=== PATIENT | male | born 1955 | race Caucasian/White ===

== ENCOUNTER 2018-09-21 15:11 | Emergency (ER) | payer OTHER ==
[~2018-09-21] VITALS: Ht 172.7 cm; Wt 92.5 kg
--- NOTE | 2018-09-21 20:58 | EKG ---
[facility] [address] [place] [address] elevation, consider lateral injury or acute infarct ACUTE CO / STEMI Abnormal ECG No previous ECGs available Confirmed by RADHA EDWARD MD ([id number] on 09/21/2018 8:58:12 PM Electronically Signed By: RADHA EDWARD MD 09/21/18 2058 PATIENT NAME: FAINA IBANEZ JR Electrocardiogram DATE OF : 55 PHYSICIAN: RADHA EDWARD MD REPORT #: [id number] REPORT IS CONFIDENTIAL AND NOT TO BE RELEASED WITHOUT AUTHORIZATION
== END 2018-09-21 16:35 | disposition home or self-care (01) ==
LOC: ED 15:11
DX: R07.9 Chest pain, unspecified (principal); Z87.891 Personal history of nicotine dependence
CPT/HCPCS: 71045; 80053; 84484; 85025; 93005; 93010; 99285-25